=== PATIENT | female | born 1930 | race Caucasian/White ===

== ENCOUNTER 2018-10-27 11:56 | Emergency (ER) | payer OTHER ==
[~2018-10-27] VITALS: Ht 157.5 cm; Wt 65.8 kg
[2018-10-27 12:10] VITALS: Ht 157.5 cm; Wt 65.8 kg
[2018-10-27 16:13] VITALS: BP 147/93
== END 2018-10-27 16:29 | disposition home or self-care (01) ==
LOC: ED 11:56
DX: M71.22 Synovial cyst of popliteal space [Baker], left knee (principal); E78.00 Pure hypercholesterolemia, unspecified; I10 Essential (primary) hypertension
CPT/HCPCS: J1100; J1885